=== PATIENT | male | born 1975 | race Caucasian/White ===

== ENCOUNTER 2021-11-19 16:28 | Emergency (ER) | payer OTHER ==
[~2021-11-19] VITALS: Ht 165.1 cm; Wt 104.3 kg
[~2021-11-19 16:28] MED LIST: ALBU90OI61 INH; CODGUAEL PO; Cortisporin Ear10 ML RIGHTEAR; RANI150 PO
[2021-11-19 17:08] LABS: BASOPHILS PERCENT AUTO 1 % (0-2); EOSINOPHILS ABSOLUTE AUTO 0.02 K/mm3 (0.00-0.68); EOSINOPHILS PERCENT AUTO 0 % (0-6); Hematocrit 49.2 % (37.0-53.0); Hemoglobin 17.3 g/dL (13.5-17.5); IMMATURE GRAN ABSOLUTE AUTO 0.08 K/mm3 (0.00-0.10); IMMATURE GRAN PERCENT AUTO 1 % (0-1); LYMPHOCYTES ABSOLUTE AUTO 1.59 K/mm3 (0.84-5.20); LYMPHOCYTES PERCENT AUTO 11 % (21-46); MONOCYTES ABSOLUTE AUTO 0.92 K/mm3 (0.16-1.47); MONOCYTES PERCENT AUTO 7 % (4-13); Mean Corpuscular HGB 29.7 pg (26.0-34.0); Mean Corpuscular HGB Conc 35.2 g/dL (31.5-36.5); Mean Corpuscular Volume 85 fL (80-100); Mean Platelet Volume 9.7 fL (9.1-12.4); NEUTROPHILS ABSOLUTE AUTO 11.51 K/mm3 (1.96-9.15); NEUTROPHILS PERCENT AUTO 81 % (41-73); Platelet Count 314 K/mm3 (150-400); RDW Standard Deviation 37.1 fL (35.1-46.3); Red Blood Cell Count 5.82 M/mm3 (4.30-5.90); White Blood Cell Count 14.22 K/mm3 (4.00-11.30)
[2021-11-19 17:18] LABS: Alanine Aminotransfer (ALT/SGP 74 U/L (12-78); Albumin, Blood 4.3 g/dL (3.4-5.0); Albumin/Globulin Ratio 1.2 (0.8-1.8); Alk Phos 73 U/L (50-136); Anion Gap 7 mmol/L (6-16); Aspartate Aminotrans (AST/SGOT 34 U/L (12-37); Bilirubin, Total 0.6 mg/dL (0.1-1.0); Blood Urea Nitrogen 11 mg/dL (8-24); Bun/Creatinine Ratio 9.6 (12.0-20.0); CO2, Blood 25 mmol/L (21-32); Calcium, Blood 9.4 mg/dL (8.5-10.1); Chloride, Blood 107 mmol/L (98-108); Creatinine, Blood 1.14 mg/dL (0.60-1.20); Globulin, Blood 3.7 g/dL (2.2-4.0); Glomerular Filtration Rate >60 (60-); Glucose, Blood 131 mg/dL (70-99); Sodium, Blood 139 mmol/L (136-145)
[2021-11-19 17:26] LABS: Influenza A, PCR NEGATIVE (NEGATIVE); Influenza B, PCR NEGATIVE (NEGATIVE); Resp Syncytial Virus, PCR NEGATIVE (NEGATIVE); SARS-Cov-2 (COVID-19) PCR, MMC NEGATIVE (NEGATIVE)
[2021-11-19 19:10] LABS: Source, Urine Clean Catch
[2021-11-19 19:15] LABS: Bilirubin, Urine Neg (Neg); Blood, Urine Neg (Neg); Glucose Qualitative, Urine Neg (Neg); Ketones, Urine Neg (Neg); Leukocyte Esterase, Urine Neg (Neg); Nitrite, Urine Neg (Neg); Protein, Urine Neg (Neg); Urobilinogen, Urine NORM (Normal)
[2021-11-19 19:32] LABS: Appearance, Urine Clear (Clear); Color, Urine Pale Yellow (P-Yellow)
== END 2021-11-19 20:30 | disposition home or self-care (01) ==
LOC: ER 16:28
PROVIDERS: Physician Assistant
DX: R10.13 Epigastric pain (principal); K21.9 Gastro-esophageal reflux disease without esophagitis; F17.200 Nicotine dependence, unspecified, uncomplicated
CPT/HCPCS: 0241U; 36415; 74177; 80053; 81003; 83690; 84484; 85025; 93005; 93010; A9270; J2405; J7030; Q9967

== ENCOUNTER 2022-03-08 15:05 | Observation (INO) | payer OTHER ==
[~2022-03-08] VITALS: Ht 165.1 cm; Wt 119.1 kg
[~2022-03-08 15:05] MED LIST changes: +Norco 5-325 Ta1 EACH PO; +Protonix40 MG PO
[2022-03-08 16:18] LABS: BASOPHILS PERCENT AUTO 1 % (0-2); EOSINOPHILS ABSOLUTE AUTO 0.16 K/mm3 (0.00-0.68); EOSINOPHILS PERCENT AUTO 2 % (0-6); Hematocrit 48.6 % (37.0-53.0); Hemoglobin 17.1 g/dL (13.5-17.5); IMMATURE GRAN ABSOLUTE AUTO 0.02 K/mm3 (0.00-0.10); IMMATURE GRAN PERCENT AUTO 0 % (0-1); LYMPHOCYTES PERCENT AUTO 27 % (21-46); MONOCYTES ABSOLUTE AUTO 0.62 K/mm3 (0.16-1.47); MONOCYTES PERCENT AUTO 8 % (4-13); Mean Corpuscular HGB 29.8 pg (26.0-34.0); Mean Corpuscular HGB Conc 35.2 g/dL (31.5-36.5); Mean Corpuscular Volume 85 fL (80-100); Mean Platelet Volume 9.5 fL (9.1-12.4); NEUTROPHILS ABSOLUTE AUTO 4.46 K/mm3 (1.96-9.15); NEUTROPHILS PERCENT AUTO 61 % (41-73); Platelet Count 328 K/mm3 (150-400); RDW Coefficient Variation 12.4 % (11.7-14.2); RDW Standard Deviation 38.1 fL (35.1-46.3); Red Blood Cell Count 5.73 M/mm3 (4.30-5.90); White Blood Cell Count 7.36 K/mm3 (4.00-11.30)
[2022-03-08 16:38] LABS: Bilirubin, Total 1.1 mg/dL (0.1-1.0); Bun/Creatinine Ratio 11.8 (12.0-20.0); Calcium, Blood 9.3 mg/dL (8.5-10.1); Creatinine, Blood 0.94 mg/dL (0.60-1.20); Globulin, Blood 4.1 g/dL (2.2-4.0); Potassium, Blood 4.9 mmol/L (3.5-5.5); Total Protein, Blood 8.1 g/dL (6.4-8.2)
--- NOTE | 2022-03-09 04:45 | NUR ---
MEDICAL PATHOLOGY TEACHER SUMMARY NEW ADMIT FROM THE ED TONIGHT. PT TO HAVE CHOLECYSTECTOMY LATER TODAY WITH DR CHAPA. PT AAOX4 AND INDEPENDENT IN ROOM. HAS BEEN NPO. MEDICATED WITH 1 MG IV DILAUDID AFTER COMING TO THE FLOOR AND PT REPORTED THAT TAKES PAIN AWAY COMPLETELY. NPO. VSS, WILL CONTINUE TO MONITOR.
[2022-03-09 11:33] LABS: Influenza A, PCR NEGATIVE (NEGATIVE); Influenza B, PCR NEGATIVE (NEGATIVE); Resp Syncytial Virus, PCR NEGATIVE (NEGATIVE); SARS-Cov-2 (COVID-19) PCR, MMC NEGATIVE (NEGATIVE)
--- NOTE | 2022-03-09 12:29 | NUR ---
PT TRANSPORTED TO [facility]. AGREES WITH PLANNED SURGERY. TONGUE PIERCING REMOVED. PLACED IN BAGGIE AND PLACED IN CHART.
--- NOTE | 2022-03-09 14:01 | NUR ---
03/09/22 [address] [place] [address] PATIENT ON SCHEDULED ANTIBIOTICS.
--- NOTE | 2022-03-09 17:05 | NUR ---
pt arrived to 219 via gurney from recovery, he is very sleepy, will barely wake with shaking, currently on 6 liters 02 via n/c, lungs are dim with exp snore, will monitor, v.s. surgical sites are c/d/i, call light in reach.
--- NOTE | 2022-03-09 18:21 | NUR ---
pt a bit more awake, still sleepy, waiting for dinner, no acute changes this shift, call light in reach.
--- NOTE | 2022-03-10 04:22 | NUR ---
PUBLIC HEALTH NURSE SUMMARY POD 0 FOR LAP FOZIA. ABD LAP SITES X3 C/D/I. PT TOLERATING PO INTAKE WITH NO ISSUES. PAIN MOSTLY WITH MOVEMENT BUT WELL MANAGED WITH NORCO 2 TABS. CONTINUING IV ABX. VSS, WILL CONTINUE TO MONITOR.
[2022-03-10] MEDS ORDERED: Norco 5-325 Ta1 EACH PO (13:24)
--- NOTE | 2022-03-10 13:32 | NUR ---
DISCHARGE NOTE: PATIENT AND PATIENTS MOTHER WERE EDUCATED ON DISCHARGE INSTRUCTIONS. BOTH VERBALIZED UNDERSTANDING OF INSTRUCTIONS AND HAD NO FURTHER QUESTIONS. BOTH IVS WERE TAKEN OUT AND WNL. PAIN IS MANAGED WITH PO PAIN MEDS. PATIENT HAS 3 STERI STRIP LAP SITES THAT ARE DRY AND INTACT. HE IS TOLERATING PO INTAKE AND IS VOIDING. PATIENT HAS ALSO AMBULATED IN THE HALLWAYS INDEP. HARD PERSCRIPTION IS IN THE INSTRUCTIONS FOLDER. PATIENT IS GETTING DRESSED AND HAS ITEMS IN THE ROOM GATHERED. PATIENT WILL BE WHEELCHAIRED OUT TO HIS MOMS CAR TO BE TAKEN HOME.
== END 2022-03-10 14:20 | disposition home or self-care (01) ==
LOC: ER 15:05 → SURS 15:06 → ER 18:08 → SURS 18:08 → ER 19:43 → SURS 20:46
PROVIDERS: Physician Assistant; Surgery; ADMIT Surgery
PROC: BF00YZZ Plain Radiography of Bile Ducts using Other Contrast (ICD-10-PCS; principal; 2022-03-09 12:30)
PROC: 0WQF4ZZ Repair Abdominal Wall, Percutaneous Endoscopic Approach (ICD-10-PCS; principal; 2022-03-09 12:30)
PROC: 0FT44ZZ Resection of Gallbladder, Percutaneous Endoscopic Approach (ICD-10-PCS; principal; 2022-03-09 12:30)
DX: K80.12 Calculus of gallbladder with acute and chronic cholecystitis without obstruction (principal); K42.9 Umbilical hernia without obstruction or gangrene; K21.9 Gastro-esophageal reflux disease without esophagitis; F17.210 Nicotine dependence, cigarettes, uncomplicated; Z20.822 Contact with and (suspected) exposure to COVID-19
CPT/HCPCS: 0241U; 36415; 76705; 80053; 83690; 85025; 88304; 96365; 96366; 96375; 96376; 99285-25; A9270; G0378; J0295; J1100; J1170; J1885; J2250; J2270; J2310; J2405; J2704; J3010; J7040; J7120

== ENCOUNTER → 2022-05-17 | Outpatient (CLI) | payer OTHER ==
[2022-05-23 17:10] LABS: COTININE <10.0 ng/mL (.); NICOTINE <10.0 ng/mL (.)
== END | disposition home or self-care (01) ==
LOC: LAB 15:30 → LAB SHORT 15:30
PROVIDERS: Surgery
DX: Z09 Encounter for follow-up examination after completed treatment for conditions other than malignant neoplasm (principal); Z87.891 Personal history of nicotine dependence
CPT/HCPCS: G0480